=== PATIENT | male | born 1980 | race Two or more races ===

== ENCOUNTER 2018-05-30 13:27 | Emergency (ER) | payer OTHER ==
[2018-05-30 13:47] VITALS: BP 119/73
[2018-05-30] MEDS ORDERED: Tetan/Diph/Pertus SYR(Tdap)* 0.5 ML SYR(BOOSTRIX) use SYR IM ONE (13:49)
--- NOTE | 2018-05-30 13:49 | UC ---
Laceration HPI - HPI Summary HPI Summary: 38 yo male presents with laceration along left eyebrow sustained last night. He tells me that he was playing soccer and was hit by an opponents hand above the left eye. Sustained a 1.0cm laceration to the area. He applied pressure and continued to play. He is here today wondering if he needs stitches. His last tetanus was about 4 years ago. - History Of Current Complaint Chief Complaint: UCLaceration Stated Complaint: EYEBROW LAC Time Seen by Provider: 05/30/18 13:49 Hx Obtained From: Patient Laceration Location: Face Onset/Duration: Sudden Onset Severity: Mild Pain Intensity: 1 Pain Scale Used: 0-10 Numeric - Allergies/Home Medications Allergies/Adverse Reactions: Allergies Allergy/AdvReac Type Severity Reaction Status Date / Time No Known Allergies Allergy Verified 05/30/18 13:47 Home Medications: Home Medications NK [No Home Medications Reported] 05/30/18 [History Confirmed 05/30/18] PMH/Surg Hx/FS Hx/Imm Hx - Additional Past Medical History Additional PMH: None - Surgical History Surgical History: None - Family History Known Family History: Positive: None - Social History Occupation: Employed Full-time Lives: With Family Alcohol Use: Occasionally Substance Use Type: None Smoking Status (MU): Never Smoked Tobacco Review of Systems Constitutional: Negative Skin: Other - Laceration left eyebrow Respiratory: Negative Cardiovascular: Negative Neurological: Negative Psychological: Negative All Other Systems Reviewed And Are Negative: Yes Physical Exam - Summary Physical Exam Summary: GENERAL: NAD. WDWN. No pain distress. SKIN: LEFT eyebrow: 1.0cm linear laceration with scab. Mild edema. Mild TTP. No streaking, bleeding, or drainage. CHEST: No accessory muscle use. Breathing comfortably and in no distress. CV: Pulses intact. Cap refill <2seconds NEURO: Alert. PSYCH: Age appropriate behavior. Triage Information Reviewed: Yes Vital Signs: Initial Vital Signs Temp 98.1 F 05/30/18 13:44 Pulse 66 05/30/18 13:44 Resp 16 05/30/18 13:44 BP 119/73 05/30/18 13:44 Pulse Ox 100 05/30/18 13:44 Vital Signs Reviewed: Yes Laceration Course/Dx - Course/Dx Course Of Treatment: Laceration is scabbed and well approximated at rest. Advised to keep area covered with band-aid until well healed. - Differential Dx - Laceration/Wound Provider Diagnoses: Laceration left eyebrow Discharge - Sign-Out/Discharge Documenting (check all that apply): Patient Departure All imaging exams completed and their final reports reviewed: No Studies - Discharge Plan Condition: Stable Disposition: HOME Patient Education Materials: Laceration (ED) Referrals: Dale Hall MD [Primary Care Provider] - Additional Instructions: If you develop a fever, shortness of breath, chest pain, new or worsening symptoms - please call your PCP or go to the ED. 1) Keep the area covered with a bandage until well healed - Billing Disposition and Condition Condition: STABLE Disposition: Home
== END 2018-05-30 14:00 | disposition home or self-care (01) ==
LOC: UCEAST 13:27
DX: S01.112A Laceration without foreign body of left eyelid and periocular area, initial encounter (principal); W50.0XXA Accidental hit or strike by another person, initial encounter; Y93.66 Activity, soccer; Y92.322 Soccer field as the place of occurrence of the external cause
CPT/HCPCS: 90715; 99211; G0463